=== PATIENT | male | born 1965 | race Caucasian/White ===

== ENCOUNTER 2018-10-30 15:15 | Outpatient (CLI) | payer BC, OTHER ==
--- NOTE | 2018-10-30 16:47 | RAD ---
SINUS PARKS VIEW FOR MRI CLEARANCE: 10/30/18 INDICATION: Report of metal in the eyes. FINDINGS: No retained metallic foreign body is seen within the region of the orbits. Visualized paranasal sinus es are clear. No acute osseous abnormality is evident. IMPRESSION: No retained metallic foreign body seen within the region of the orbits. POS: [facility]
--- NOTE | 2018-10-30 17:57 | MRI ---
MR OF THE RIGHT SHOULDER WITHOUT CONTRAST: 10/30/18 INDICATION: Right shoulder pain with limited range of motion. COMPARISON: None. FINDINGS: There is a full thickness tear involving the posterior supraspinatus and anterior infraspinatus at th e region of the conjoined tendon measuring 1.4 x 1.5 cm greatest mediolateral and AP dimensions respe ctively. There is moderate tendinosis of the supraspinatus and infraspinatus. There is moderate gleno humeral osteoarthrosis with subchondral cyst-like abnormalities involving the inferior glenoid head a nd neck region. Small marginal osteophytes seen off the humeral head. Biceps tendon is located. There is some mild tendinosis of the intra-articular biceps tendon. There is some degenerative intrasubsta nce signal of the superior glenoid labrum and biceps anchor complex. There is moderate AC joint osteo arthrosis with acromial hypertrophy causing mild encroachment of the posterior supraspinatus. No musc ular atrophy is evident. No enlarged lymph nodes are present. IMPRESSION: 1. Full thickness posterior supraspinatus and anterior infraspinatus rotator cuff tear with mode rate tendinosis of the supraspinatus and infraspinatus. 2. Mild biceps tendinosis. 3. Moderate glenohumeral and AC joint osteoarthrosis. POS: BH
== END 2018-10-30 15:16 | disposition home or self-care (01) ==
LOC: SCSMRI 15:15
PROVIDERS: ATTEND Orthopaedic Surgery
DX: M25.711 Osteophyte, right shoulder (principal); M75.121 Complete rotator cuff tear or rupture of right shoulder, not specified as traumatic; M75.81 Other shoulder lesions, right shoulder; M19.011 Primary osteoarthritis, right shoulder
CPT/HCPCS: 70210

== ENCOUNTER 2019-03-11 14:42 | Outpatient (CLI) | payer BC, OTHER ==
[2019-03-11 17:21] LABS: #Basophils 0.1 thou/uL (0.0-0.2); #Eosinphils 0.3 thou/uL (0.0-0.7); #Lymphocytes 2.7 thou/uL (1.20-3.40); #Monocytes 0.9 thou/uL (0.11-0.59); #Neutrophils 5.3 thou/uL (1.40-6.50); %Basophils 0.8 % (0.0-1.0); %Lymphocytes 29.3 % (21.0-51.0); %Monocytes 9.3 % (0.0-10.0); %Neutrophils 57.7 % (42.0-75.0); Hemoglobin 15.5 g/dL (14.0-18.0); Mean Corpuscular HGB CONC 33.1 g/dL (32.0-36.0); Mean Corpuscular Hemoglobin 28.8 pg (27.0-31.0); Mean Corpuscular Volume 87.2 fL (78.0-98.0); Mean Platelet Volume 6.9 fL (7.4-10.4); Platelet Count 273 thou/uL (130-400); RBC Distribution Width 13.4 % (11.5-14.5); Red Blood Cell (RBC) Count 5.37 mill/uL (4.70-6.10); White Blood Cell (WBC) Count 9.3 thou/uL (4.8-10.8)
[2019-03-11 17:48] LABS: Anion Gap 16 mmol/L (10-20); BUN (Urea Nitrogen) 13 mg/dL (8.4-25.7); Calc. Creatinine Clearance 0 mL/min (70-130); Calcium 9.7 mg/dL (7.8-10.44); Carbon Dioxide 26 mmol/L (22-29); Chloride 99 mmol/L (98-107); Estimated GFR-MDRD 59; Glucose 285 mg/dL (70-105); Potassium 4.2 mmol/L (3.5-5.1); Sodium 137 mmol/L (136-145)
== END 2019-03-11 14:43 | disposition home or self-care (01) ==
LOC: LABBT 14:42
PROVIDERS: ATTEND Orthopaedic Surgery
DX: Z01.818 Encounter for other preprocedural examination (principal); M75.121 Complete rotator cuff tear or rupture of right shoulder, not specified as traumatic
CPT/HCPCS: 80048; 85025; 93005; 93010

== ENCOUNTER 2019-03-13 05:37 | Day surgery (SDC) | payer BC, OTHER ==
[2019-03-11 16:09] VITALS: BMI 36.1
[2019-03-13] MEDS ORDERED: Clindamycin/D5W 600 mg/50 ml Premix Bag ONE (06:08)
[2019-03-13] MEDS ORDERED: Midazolam HCl 2 mg/2 ml Vial ONE (06:38)
[2019-03-13] MEDS ORDERED: Fentanyl 100 MCG/2 ML VIAL ONE (06:38)
[2019-03-13] MEDS ORDERED: Bupivacaine 0.25% HCL 30 ML VIAL ONE (06:41)
[2019-03-13] MEDS ORDERED: Insulin Regular 300 UNITS/3 ML VIAL ONE (06:49)
[2019-03-13] MEDS ORDERED: Lidocaine 1% w/Epinephrine 1:100K 20 ML VIAL ONE (07:16)
[2019-03-13] MEDS ORDERED: traMADol HCl 50 MG TAB PO PRN ×2 (07:18)
[2019-03-13] MEDS ORDERED: Promethazine HCl 25 MG/ML VIAL IM PRN (07:18)
[2019-03-13] MEDS ORDERED: HYDROcodone/Acetaminophen 10/325 mg Tablet PO PRN ×2 (07:18)
[2019-03-13] MEDS ORDERED: Ropivacaine 0.2% 550 ML 550 ML NERVE BLCK SCH (07:18)
[2019-03-13] MEDS ORDERED: Ketorolac Tromethamine 30 MG/ML VIAL IVP PRN (07:18)
[2019-03-13] MEDS ORDERED: Zolpidem Tartrate 5 MG TAB PO PRN (07:18)
[2019-03-13] MEDS ORDERED: Ondansetron PF 4 MG/2 ML Vial IVP PRN (07:18)
[2019-03-13] MEDS ORDERED: Fentanyl 100 MCG/2 ML VIAL SLOW IVP PRN (07:19)
[2019-03-13] MEDS ORDERED: Acetaminophen 325 MG TAB PO PRN (07:22)
[2019-03-13] MEDS ORDERED: Morphine 2 MG/ML SYRINGE ONE (09:55)
--- NOTE | 2019-03-13 11:16 | HP ---
POSTOPERATIVE DIAGNOSIS: Right shoulder pain, right rotator cuff tear. 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 The patient denies numbness or tingling. Dull throbbing pain, worse at night. He is type 2 diabetic, history of bypass, history of smoking, pain was worse in the evening, difficulty sleeping and with other activities. He has been cleared per Cardiology. PAST MEDICAL HISTORY: Hypertension, depression, diabetes, hypercholesterolemia, headaches. PAST SURGICAL HISTORY: Left knee procedure unspedified, left total knee, tibia fracture fixation, bypass. MEDICATIONS: Include; 1. Aspirin. 2. Atenolol. 3. Atorvastatin. 4. Diclofenac. 5. Trulicity. 6. Jardiance. 7. Fluoxetine. 8. Insulin. 9. Latanoprost. 10. Losartan and hydrochlorothiazide. 11. Meloxicam. 12. Metformin. 13. Protonix. 14. Zoloft. 15. Bactrim. 16. Tramadol. SOCIAL HISTORY: Nonsmoker with history of smoking. Alcohol, occasional. No drugs. The patient works in construction. ALLERGIES: PENICILLIN, UNKNOWN IN CHILDHOOD REACTION. PHYSICAL EXAMINATION: GENERAL: Alert and oriented male, in no acute distress, resting in bed. EXTREMITIES: Right upper extremity; forward flexion 150, external rotation 140 supraspinatous strength 4/5, positive O'Briens. His MRI shows full-thickness supraspinatus tear, infraspinatus tear, moderate tendinosis, moderate glenohumeral and AC joint arthrosis. IMPRESSION: 1. Complete rotator cuff tear. 2. Biceps tendinosis. 3 AC arthritis. ASSESSMENT AND PLAN: The patient will be taken for arthroscopic repair with possible biceps tenodesis decompression. I discussed the risks and benefits of procedure to include pain, scar, bleeding, infection, damage to vital structures , decreased range of motion and strength, need for further surgery, failure of procedure, continued pain despite surgical intervention, loss of life or limb. The patient understood the risks and benefits, elected to proceed. He will be taken to the operative suite. Job ID: [id number] MTDD
[2019-03-13] MEDS ORDERED: Rocuronium Bromide 10 MG/ML (10ML VIAL) ONE (14:36)
[2019-03-13] MEDS ORDERED: PHENYLEPHRINE-NS 100 MCG/ML 10 ML SYRINGE ONE (14:36)
[2019-03-13] MEDS ORDERED: Glycopyrrolate 0.2 MG/ML 5 ML SYRINGE ONE (14:36)
[2019-03-13] MEDS ORDERED: Ropivacaine 0.2% HCl/PF (40 MG/20 ML VIAL) ONE (14:36)
[2019-03-13] MEDS ORDERED: Ropivacaine 0.5% HCl/PF (150 MG/30 ML VIAL) ONE (14:36)
[2019-03-13] MEDS ORDERED: ePHEDrine/0.9% NaCl/PF SYRINGE 50 mg/10 ml ONE (14:36)
[2019-03-13] MEDS ORDERED: PROPOFOL 200 MG/20 ML VIAL ONE (14:36)
[2019-03-13] MEDS ORDERED: Lidocaine 1% PF 5 ML VIAL ONE (14:36)
[2019-03-13] MEDS ORDERED: Ondansetron PF 4 MG/2 ML Vial ONE (14:36)
--- NOTE | 2019-03-18 11:47 | OP ---
DATE OF PROCEDURE: 03/13/2019 PREOPERATIVE DIAGNOSES: 1. Right full-thickness rotator cuff tear. 2. Biceps tendinopathy. 3. Acromioclavicular joint arthritis. POSTOPERATIVE DIAGNOSES: 1. Right full-thickness rotator cuff tear. 2. Biceps tendinopathy. 3. Acromioclavicular joint arthritis. PROCEDURE PERFORMED: Right rotator cuff repair, double row transosseous equivalent. POOL SERVICER: None. ANESTHESIOLOGIST: Robert. ANESTHESIA: The patient received a general endotracheal intubation with interscalene block. ESTIMATED BLOOD LOSS: 30 mL. TOURNIQUET TIME: None. IMPLANTS: Two 5.5 Arthrex corkscrews and two 4.5 SwiveLock. ANTIBIOTICS: clindamycin COMPLICATIONS: None. HISTORY OF PRESENT ILLNESS: Mr. Ceron is a 53-year-old male with 6 months of right shoulder pain with MRI evidence of a right rotator cuff tear, has failed conservative measures and desired to proceed with operative treatment. I discussed the risks and benefits of the surgery to include, pain, scar, bleeding, infection, decreased range of motion and strength, failure of the cuff to heal, damage to vital structures. The patient's diabetes as well as previous smoking history will affect his ability to heal the cuff. The patient finally understood the risks and benefits of the procedure and elected to proceed. DESCRIPTION OF PROCEDURE: After time-out was performed designating the patient' s right upper extremity as the operative site based on site, consents, and marking , posterior portal was placed. Anterior portal was placed and visualized intra-articularly within the joint. The subscapularis had small interstitial tear, but did not have any peel off or any repairable tears. I debrided some of the degenerative labrum, look at the biceps, which looked pretty much clean through its course, I saw the cuff tear intra-articularly, I then moved subacromially and removed small amount of bursa, exposed the cuff. I janet down the bone to help with placement. I placed two corkscrew anchors in the anterior and posterior footprint. The patient had anterior and posterior footprint. I placed 4 suture limbs anteriorly in horizontal mattress fashion and 4 posteriorly, tied the knots posterior and anterior, tied a stitch for bucket handle through a small dog-ear anteriorly. I passed our anterior anchor first, pulled the suture site, cut them and then moved posterior, I placed a second double row anchor, felt had overall good laying down of the cuff. We cut all the sutures, washed, closed the skin with nylon. The patient will begin passive range of motion of elbow, wrist, and hand motion. Follow up with me in 2 weeks. [place] is guarded. Job ID: [id number] MTDD
== END 2019-03-13 13:06 | disposition home or self-care (01) ==
LOC: SDC 05:37
PROVIDERS: ATTEND Orthopaedic Surgery
PROC: 3E0T3BZ Introduction of Anesthetic Agent into Peripheral Nerves and Plexi, Percutaneous Approach (ICD-10-PCS; principal; 2019-03-13)
PROC: 0LQ14ZZ Repair Right Shoulder Tendon, Percutaneous Endoscopic Approach (ICD-10-PCS; principal; 2019-03-13)
PROC: 0RNJ4ZZ Release Right Shoulder Joint, Percutaneous Endoscopic Approach (ICD-10-PCS; principal; 2019-03-13)
DX: M75.121 Complete rotator cuff tear or rupture of right shoulder, not specified as traumatic (principal); M75.21 Bicipital tendinitis, right shoulder; M19.011 Primary osteoarthritis, right shoulder; G89.18 Other acute postprocedural pain; I10 Essential (primary) hypertension; E11.9 Type 2 diabetes mellitus without complications; E78.5 Hyperlipidemia, unspecified; I25.10 Atherosclerotic heart disease of native coronary artery without angina pectoris; F17.210 Nicotine dependence, cigarettes, uncomplicated; F32.9 Major depressive disorder, single episode, unspecified; E78.00 Pure hypercholesterolemia, unspecified; Z79.1 Long term (current) use of non-steroidal anti-inflammatories (NSAID); Z79.4 Long term (current) use of insulin; Z79.82 Long term (current) use of aspirin; Z79.899 Other long term (current) drug therapy; Z88.0 Allergy status to penicillin; Z98.84 Bariatric surgery status
CPT/HCPCS: 36416; A4306; C1713; J1815; J2001; J2250; J2270; J2405; J2704; J2795; J3010; J3490; S0020